=== PATIENT | female | born 1995 | race Hispanic/Latino ===

== ENCOUNTER 2019-07-15 17:55 | Emergency (ER) | payer SELFPAY ==
[~2019-07-15] VITALS: Ht 160 cm; Wt 73.0 kg
[~2019-07-15 17:55] MED LIST: CIPRO500 MG PO
--- OUTSIDE RECORDS SUMMARY | 2019-07-15 17:58 | XMS REPORT ---
Author [facility] Address Unknown Phone Unavailable Care Team Providers Care Psychologists Name Role Phone Unavailable Unavailable Payers Payer Name Policy Type Policy Number Effective Date Expiration Date Problems This patient has no known problems. Allergies, Adverse Reactions, Alerts Allergy Name Allergy Type Status Severity Reaction(s) Onset Date Inactive Date Treating Clinician Comments cefaclor DA Active SV 2018-11-01 00:00:00 amoxicillin DA Active SV 2018-11-01 00:00:00 cefaclor DA Active SV 2018-10-31 00:00:00 amoxicillin DA Active SV 2018-10-31 00:00:00 cefaclor DA Active SV 2018-08-25 00:00:00 amoxicillin DA Active SV 2018-08-25 00:00:00 cefaclor DA Active SV 2018-03-30 00:00:00 amoxicillin DA Active SV 2018-03-30 00:00:00 Medications This patient has no known medications. Encounters Start Date/Time End Date/Time Encounter Type Admission Type Attending Clinicians Care Facility Care Department Encounter ID 2018-11-17 00:00:00 2018-11-17 00:00:00 Outpatient [facility] [id number] 2018-09-08 08:10:20 2018-09-08 08:10:20 Outpatient [facility] [id number] 2018-05-12 00:00:00 2018-05-12 00:00:00 Outpatient [facility] [id number] 2018-04-28 00:00:00 2018-04-28 00:00:00 Outpatient [facility] [id number] 2018-03-03 08:27:48 2018-03-03 08:27:48 Outpatient [facility] [id number] 2018-02-13 10:08:22 2018-02-13 10:08:22 Outpatient [facility] [id number] 2018-01-27 08:09:19 2018-01-27 08:09:19 Outpatient [facility] [id number] 2017-11-25 09:18:39 2017-11-25 09:18:39 Outpatient [facility] [id number] 2017-11-13 09:00:33 2017-11-13 09:00:33 Outpatient [facility] [id number] 2017-11-11 08:06:12 2017-11-11 08:06:12 Outpatient [facility] [id number] 2017-09-09 00:00:00 2017-09-09 00:00:00 Outpatient [facility] [id number] 2017-09-03 09:30:56 2017-09-03 09:30:56 Outpatient [facility] [id number] 2017-07-21 00:00:00 2017-07-21 00:00:00 Outpatient [facility] [id number] 2017-07-15 08:21:38 2017-07-15 08:21:38 Outpatient [facility] [id number] 2017-07-15 00:00:00 2017-07-15 00:00:00 Outpatient [facility] [id number] 2017-06-19 00:00:00 2017-06-19 00:00:00 Outpatient [facility] [id number] 2017-05-20 00:00:00 2017-05-20 00:00:00 Outpatient [facility] [id number] 2017-05-19 00:00:00 2017-05-19 00:00:00 Outpatient [facility] [id number] 2017-01-31 15:33:22 2017-01-31 15:33:22 Outpatient [facility] [id number] Results Test Description Test Time Test Comments Text Results Atomic Results Result Comments CBC W/AUTO DIFF 2018-11-02 06:10:00 WHITE BLOOD CELL (test code=WBC) 15.5 K/mm3 4.5-12.5 RED BLOOD CELL (test code=RBC) 3.78 mill/mm3 3.7-5.2 HEMOGLOBIN (test code=HGB) 9.7 gram/dL 11.5-15.5 HEMATOCRIT (test code=HCT) 29.3 % 36.0-46.0 MEAN CELL VOLUME (test code=MCV) 77.5 fL 80-98 MEAN CELL HGB (test code=MCH) 25.7 picogram 27.0-33.0 MEAN CELL HGB CONCETRATION (test code=MCHC) 33.1 gram/dL 33.0-36.0 RED CELL DISTRIBUTION WIDTH (test code=RDW) 14.8 % 11.6-16.2 RED CELL DISTRIBUTION WIDTH SD (test code=RDW-SD) 41.0 fL 37.0-51.0 PLATELET COUNT (test code=PLT) 156 K/mm3 150-450 MEAN PLATELET VOLUME (test code=MPV) 11.4 fL 6.7-11.0 NEUTROPHIL % (test code=NT%) 76.7 % 39.0-69.0 IMMATURE GRANULOCYTE % (test code=IG%) 0.3 % 0.0-5.0 LYMPHOCYTE % (test code=LY%) 16.5 % 25.0-55.0 MONOCYTE % (test code=MO%) 6.2 % 0.0-10.0 EOSINOPHIL % (test code=EO%) 0.2 % 0.0-5.0 BASOPHIL % (test code=BA%) 0.1 % 0.0-1.0 NUCLEATED RBC % (test code=NRBC%) 0.0 % 0-0 NEUTROPHIL # (test code=NT#) 11.92 K/mm3 1.8-7.7 IMMATURE GRANULOCYTE # (test code=IG#) 0.05 x10 3/uL 0-0.03 LYMPHOCYTE # (test code=LY#) 2.56 K/mm3 1.0-5.0 MONOCYTE # (test code=MO#) 0.96 K/mm3 0-0.8 EOSINOPHIL # (test code=EO#) 0.03 K/mm3 0.0-0.5 BASOPHIL # (test code=BA#) 0.02 K/mm3 0.0-0.2 NUCLEATED RBC # (test code=NRBC#) 0.00 K/mm3 0.0-0.1 MANUAL DIFF REQUIRED (test code=MDIFF) NO SPECIMEN COMMENTS: day 1URINALYSIS [id number] 03:15:00* Test Item Value Reference Range Comments UA COLOR (test code=COLU) YELLOW YELLOW UA APPEARANCE (test code=APPU) Cloudy CLEAR UA GLUCOSE DIPSTICK (test code=DGLUU) NEGATIVE mg/dL NEGATIVE UA BILIRUBIN DIPSTICK (test code=BILU) NEGATIVE mg/dL NEGATIVE UA KETONE DIPSTICK (test code=KETU) 20 (Small) mg/dL NEGATIVE UA SPECIFIC GRAVITY (test code=SGU) 1.008 1.001-1.035 UA BLOOD DIPSTICK (test code=EUGENIO) 3+ (Large) NEGATIVE UA PH DIPSTICK (test code=KARIN) 6.0 5.0-8.0 UA PROTEIN DIPSTICK (test code=PROU) Negative mg/dL NEGATIVE UA UROBILINIOGEN DIPSTICK (test code=URO) NEGATIVE mg/dL NEGATIVE UA NITRITE DIPSTICK (test code=FEDE) NEGATIVE NEGATIVE UA LEUKOCYTE ESTERASE W REFLEX (test code=LEUUR) TRACE NEGATIVE UA WBC (test code=WBCU) 0-5 #/HPF 0-5 UA RBC (test code=RBCU) 0-2 #/HPF 0-5 UA WBC CLUMPS (test code=WBCUCL) 3-6 /HPF NONE UA EPITHELIAL CELLS (test code=EPIU) MOD per HPF FEW UA BACTERIA (test code=BACU) FEW #/HPF NONE UA HYALINE CAST (test code=HYALU) 3-5 #/LPF 0-5 UA MUCUS (test code=MUCU) FEW #/LPF FEW URINALYSIS [id number] 02:56:00* Test Item Value Reference Range Comments UA COLOR (test code=COLU) YELLOW YELLOW UA APPEARANCE (test code=APPU) Cloudy CLEAR UA GLUCOSE DIPSTICK (test code=DGLUU) NEGATIVE mg/dL NEGATIVE UA BILIRUBIN DIPSTICK (test code=BILU) NEGATIVE mg/dL NEGATIVE UA KETONE DIPSTICK (test code=KETU) 20 (Small) mg/dL NEGATIVE UA SPECIFIC GRAVITY (test code=SGU) 1.008 1.001-1.035 UA BLOOD DIPSTICK (test code=EUGENIO) 3+ (Large) NEGATIVE UA PH DIPSTICK (test code=KARIN) 6.0 5.0-8.0 UA PROTEIN DIPSTICK (test code=PROU) Negative mg/dL NEGATIVE UA UROBILINIOGEN DIPSTICK (test code=URO) NEGATIVE mg/dL NEGATIVE UA NITRITE DIPSTICK (test code=FEDE) NEGATIVE NEGATIVE UA LEUKOCYTE ESTERASE W REFLEX (test code=LEUUR) TRACE NEGATIVE UA WBC (test code=WBCU) per HPF 0-5 URINALYSIS [id number] 02:56:00* Test Item Value Reference Range Comments UA COLOR (test code=COLU) YELLOW YELLOW UA APPEARANCE (test code=APPU) Cloudy CLEAR UA GLUCOSE DIPSTICK (test code=DGLUU) NEGATIVE mg/dL NEGATIVE UA BILIRUBIN DIPSTICK (test code=BILU) NEGATIVE mg/dL NEGATIVE UA KETONE DIPSTICK (test code=KETU) 20 (Small) mg/dL NEGATIVE UA SPECIFIC GRAVITY (test code=SGU) 1.008 1.001-1.035 UA BLOOD DIPSTICK (test code=EUGENIO) 3+ (Large) NEGATIVE UA PH DIPSTICK (test code=KARIN) 6.0 5.0-8.0 UA PROTEIN DIPSTICK (test code=PROU) Negative mg/dL NEGATIVE UA UROBILINIOGEN DIPSTICK (test code=URO) NEGATIVE mg/dL NEGATIVE UA NITRITE DIPSTICK (test code=FEDE) NEGATIVE NEGATIVE UA LEUKOCYTE ESTERASE W REFLEX (test code=LEUUR) TRACE NEGATIVE UA WBC (test code=WBCU) per HPF 0-5 AG HEPAT B [id number] 02:38:00* Test Item Value Reference Range Comments AG HEPAT B SURF (test code=HBSAG) Nonreactive Index Nonreactive AB [id number] 02:38:00* Test Item Value Reference Range Comments AB TREPONEMA (test code=TREPAB) Nonreactive Index NonReactive HIV 1 2 COMBO AG/AB [id number] 01:45:00* Test Item Value Reference Range Comments HIV 1 2 COMBO AG/AB SCREEN (test code=[id number]) AB/AG NON REACTIVE NONREACTIVE NONREACTIVE HIV P24 ANTIGEN NONREACTIVE NONREACTIVE HIV 1&2 ANTIBODY NONREACTIVE THE HIV-1 P24 TEST HELPS DISTINGUISH ACUTE HIV- 1INFECTIONFROM ESTABLISHED HIV-1 INFECTION WHEN THE SPECIMEN ISPOSITIVE FOR HIV- 1 P24 ANTIGEN. HIV-1 P24 ANTIGEN IS HIGHEST IN THE FIRST FEW WEEKS AFTERINFECTION CBC W/AUTO [id number] 01:08:00* Test Item Value Reference Range Comments WHITE BLOOD CELL (test code=WBC) 11.9 K/mm3 4.5-12.5 RED BLOOD CELL (test code=RBC) 4.48 mill/mm3 3.7-5.2 HEMOGLOBIN (test code=HGB) 11.3 gram/dL 11.5-15.5 HEMATOCRIT (test code=HCT) 34.9 % 36.0-46.0 MEAN CELL VOLUME (test code=MCV) 77.9 fL 80-98 MEAN CELL HGB (test code=MCH) 25.2 picogram 27.0-33.0 MEAN CELL HGB CONCETRATION (test code=MCHC) 32.4 gram/dL 33.0-36.0 RED CELL DISTRIBUTION WIDTH (test code=RDW) 14.4 % 11.6-16.2 RED CELL DISTRIBUTION WIDTH SD (test code=RDW-SD) 40.0 fL 37.0-51.0 PLATELET COUNT (test code=PLT) 195 K/mm3 150-450 MEAN PLATELET VOLUME (test code=MPV) 11.1 fL 6.7-11.0 NEUTROPHIL % (test code=NT%) 79.7 % 39.0-69.0 IMMATURE GRANULOCYTE % (test code=IG%) 0.4 % 0.0-5.0 LYMPHOCYTE % (test code=LY%) 15.3 % 25.0-55.0 MONOCYTE % (test code=MO%) 4.2 % 0.0-10.0 EOSINOPHIL % (test code=EO%) 0.2 % 0.0-5.0 BASOPHIL % (test code=BA%) 0.2 % 0.0-1.0 NUCLEATED RBC % (test code=NRBC%) 0.0 % 0-0 NEUTROPHIL # (test code=NT#) 9.45 K/mm3 1.8-7.7 IMMATURE GRANULOCYTE # (test code=IG#) 0.05 x10 3/uL 0-0.03 LYMPHOCYTE # (test code=LY#) 1.81 K/mm3 1.0-5.0 MONOCYTE # (test code=MO#) 0.50 K/mm3 0-0.8 EOSINOPHIL # (test code=EO#) 0.02 K/mm3 0.0-0.5 BASOPHIL # (test code=BA#) 0.02 K/mm3 0.0-0.2 NUCLEATED RBC # (test code=NRBC#) 0.00 K/mm3 0.0-0.1
[2019-07-15] MEDS ORDERED: MAGNESIUM/ALUMINUM/SIMETHICONE 30 ML UDC PO ONE (19:15)
[2019-07-15] MEDS ORDERED: BELLADONNA ALK/PHENOBARBITAL 5 ML UDC PO ONE (19:15)
[2019-07-15] MEDS ORDERED: LIDOCAINE VISC 2% SOLN 15 ML UDC PO ONE (19:15)
[2019-07-15] MEDS ORDERED: LIDOCAINE VISC 2% SOLN 15 ML UDC ONE (19:21)
[2019-07-15 20:12] VITALS: BP 125/82
== END 2019-07-15 20:14 | disposition home or self-care (01) ==
LOC: ER 17:55
DX: K22.10 Ulcer of esophagus without bleeding (principal); F32.9 Major depressive disorder, single episode, unspecified; F41.9 Anxiety disorder, unspecified
CPT/HCPCS: 99282